=== PATIENT | female | born 1935 | race Hispanic/Latino ===

== ENCOUNTER 2021-01-22 15:45 | Emergency (ER) | payer MEDICARE, OTHER ==
[~2021-01-22] VITALS: Ht 157.5 cm; Wt 69.9 kg
[~2021-01-22 15:45] MED LIST: LOSARTAN POTAS100 MG PO
[2021-01-22] MEDS ORDERED: CITRATE OF MAGNESIA 300ML BOTTLE PO ONE (18:45)
[2021-01-22] MEDS ORDERED: LACTULOSE SYRUP 20 GM/30 ML UDC PO ONE (18:45)
[2021-01-22] MEDS ORDERED: COLACE100 MG PO (20:20)
[2021-01-22 20:25] VITALS: BP 116/82
== END 2021-01-22 20:27 | disposition home or self-care (01) ==
LOC: ER 16:30
DX: K59.00 Constipation, unspecified (principal); R11.0 Nausea; E78.00 Pure hypercholesterolemia, unspecified
CPT/HCPCS: 74019; 99283